=== PATIENT | male | born 2000 | race Caucasian/White ===

== ENCOUNTER 2020-08-02 06:16 | Emergency (ER) | payer BC ==
--- NOTE | 2020-08-02 06:27 | ED ---
SOB HPI - General Chief Complaint: Shortness of Breath Stated Complaint: DILIA Time Seen by Provider: 08/02/20 06:23 Source: patient Mode of arrival: ambulatory Limitations: no limitations - History of Present Illness Initial Comments: 19yo male presenting for cc of cough, SOB, exposure to covid. Patient states that he has had positive, cases amongst his coworkers. Patient states he's had a cough sore throat and some slight shortness of breath. Patient states he's noticed a wheezing today. Patient denies history of asthma. Patient denies fevers diarrhea abdominal pain rashes chest pain, headache neck stiffness. Patient denies additional complaints upon arrival patient requesting to have minimal necessary workup as he is paying out of pocket for this visit. Remaining ROS (-) - Related Data Previous Rx's Medication Instructions Recorded Albuterol Inhaler [Ventolin Hfa 1 puff INHALATION RT-QID PRN 30 08/02/20 Inhaler] Days #60 puff predniSONE 50 mg PO DAILY 4 Days #4 tab 08/02/20 Allergies Allergy/AdvReac Type Severity Reaction Status Date / Time No Known Allergies Allergy Verified 08/02/20 07:25 Review of Systems ROS Statement: Those systems with pertinent positive or pertinent negative responses have been documented in the HPI. ROS Other: All systems not noted in ROS Statement are negative. Past Medical History Past Medical History: No Reported History History of Any Multi-Drug Resistant Organisms: None Reported Past Surgical History: No Surgical Hx Reported Past Psychological History: No Psychological Hx Reported Smoking Status: Vaper Past Alcohol Use History: None Reported Past Drug Use History: Marijuana General Exam - General Exam Comments Initial Comments: General: The patient is awake and alert, in no distress Eye: Pupils are equal, round and reactive to light, extra-ocular movements are intact. No nystagmus. There is normal conjunctiva bilaterally. No signs of icterus. Ears, nose, mouth and throat: There are moist mucous membranes and no oral lesions. Neck: The neck is supple, there is no tenderness or JVD. Cardiovascular: There is a regular rate and rhythm. No murmur, rub or gallop is appreciated. Respiratory: Respirations are non-labored, breath sounds are equal. Expiratory wheeze, No stridor, rales, or rhonchi. No retractions no abdominal breathing Gastrointestinal: Soft, non-distended, non-tender abdomen without masses or organomegaly noted. There is no rebound or guarding present. Musculoskeletal: Normal ROM, no tenderness. Strength 5/5. Sensation intact. Radial pulses equal bilaterally 2+. Neurological: A&O x 3. CN II-XII intact grossly, There are no obvious motor or sensory deficits. Coordination appears grossly intact. Speech is normal. Skin: Skin is warm and dry and no rashes or lesions are noted. Psychiatric: Cooperative, appropriate mood & affect, normal judgment. Limitations: no limitations Course Vital Signs 08/02/20 08/02/20 08/02/20 06:20 07:37 07:45 Temperature 98.7 F Pulse Rate 100 98 100 Respiratory 18 Rate Blood Pressure 135/81 O2 Sat by Pulse 96 Oximetry 08/02/20 07:48 Temperature 98.3 F Pulse Rate 99 Respiratory 16 Rate Blood Pressure 132/78 O2 Sat by Pulse 99 Oximetry Medical Decision Making - Medical Decision Making Pt appears nontoxic complaining of URI symptoms. Expiratory wheeze on exam. I did recommend albuterol treatment and steroids as it appears patient has reactive airway. Pt is agreeable. given covid exposure and SOB i also recommended CXR. CXR clear. Patient is agreeable to breathing treatment, discharge with PCP f/u, inhaler and oral steroids. Patient is to return for worsening symptoms. Patient agreeable, mother bedside also agreeable---both prefer discharge. Pt discharged appearing well. Disposition Clinical Impression: Cough, Reactive airway disease Disposition: HOME SELF-CARE Condition: Good Instructions (If sedation given, give patient instructions): Acute Bronchitis (ED) Additional Instructions: Please use medication as discussed. Please follow-up with family doctor in the next 2 days. Please quarantine for the next 2 weeks. Please return to emergency room if the symptoms increase or worsen or for any other concerns. Prescriptions: predniSONE 50 mg PO DAILY 4 Days #4 tab Albuterol Inhaler [Ventolin Hfa Inhaler] 1 puff INHALATION RT-QID PRN 30 Days #60 puff PRN Reason: Wheezing Is patient prescribed a controlled substance at d/c from ED?: No Referrals: None,Stated [Primary Care Provider] - 1-2 days Time of Disposition: 07:53
[2020-08-02] MEDS ORDERED: predniSONE 50 MG TAB PO STA (06:35)
--- NOTE | 2020-08-02 07:14 | XR ---
EXAM: XR Chest, 2 Views CLINICAL HISTORY: ITS.REASON XR Reason: concern for covid TECHNIQUE: Frontal and lateral views of the chest. COMPARISON: No relevant prior studies available. FINDINGS: Lungs: Unremarkable. No consolidation. Pleural space: Unremarkable. No pneumothorax. Heart: Unremarkable. No cardiomegaly. Mediastinum: Unremarkable. Bones/joints: Unremarkable. IMPRESSION: No focal infiltrate.
[2020-08-02] MEDS: ALBUTEROL NEBULIZED (CONC) 5 MG, SODIUM CHLORIDE 0.9% NEBULIZ 3 ML INHALATION STA ×4 (07:33→07:37)
[2020-08-02 07:50] VITALS: BP 132/78; PULSE 99; RESP 16; TEMP 98.3
== END 2020-08-02 07:50 | disposition home or self-care (01) ==
LOC: EC 06:16
DX: J45.909 Unspecified asthma, uncomplicated (principal); F17.290 Nicotine dependence, other tobacco product, uncomplicated; Z20.828 Contact with and (suspected) exposure to other viral communicable diseases
CPT/HCPCS: 94640; 87635; 71046; 99285; J7512